=== PATIENT | female | born 1950 | race Caucasian/White ===

== ENCOUNTER → 2020-07-17 | Outpatient (CLI) | payer MEDICARE ==
[~2020-07-17] MED LIST: LEVO0.5P PO; METO25TA91 PO; RIZA10TA34 PO; SIMV20TA19 PO; SUMA100T4 PO; TOPI25TA8 PO
== END | disposition home or self-care (01) ==
LOC: CFH 07:23
PROVIDERS: ATTEND Internal Medicine Gastroenterology
DX: K52.9 Noninfective gastroenteritis and colitis, unspecified (principal); R19.4 Change in bowel habit; Z90.49 Acquired absence of other specified parts of digestive tract
CPT/HCPCS: 74018